=== PATIENT | female | born 1995 | race Two or more races ===

== ENCOUNTER 2023-08-21 08:20 | Emergency (ER) | payer BC, MEDICAID, OTHER ==
[~2023-08-21] VITALS: Ht 165.1 cm; Wt 81.0 kg
[2023-08-21 10:14] VITALS: BP 142/78; PULSE 99; RESP 16; TEMP 97.4; O2SAT 100
[2023-08-21] MEDS ORDERED: IBUP1TAB5 PO (11:45)
== END 2023-08-21 11:59 | disposition home or self-care (01) ==
LOC: EDBD 08:20 → ER 08:20
DX: S63.8X2A Sprain of other part of left wrist and hand, initial encounter (principal); S50.12XA Contusion of left forearm, initial encounter; S20.212A Contusion of left front wall of thorax, initial encounter; R51.9 Headache, unspecified; V89.2XXA Person injured in unspecified motor-vehicle accident, traffic, initial encounter; Y93.89 Activity, other specified; Y92.89 Other specified places as the place of occurrence of the external cause; Y99.8 Other external cause status
CPT/HCPCS: 70486; 71101; 73090; 73130; 81025